=== PATIENT | male | born 2000 | race Caucasian/White ===

== ENCOUNTER 2024-09-22 14:31 | Emergency (ER) | payer SELFPAY ==
[~2024-09-22] VITALS: Ht 172.7 cm; Wt 88.0 kg
[2024-09-22] MEDS ORDERED: PENICILLIN VK500 MG PO (15:07)
[2024-09-22] MEDS ORDERED: PENICILLIN V POTASSIUM 500 MG TAB PO ONE (15:10)
== END 2024-09-22 15:21 | disposition home or self-care (01) ==
LOC: ED 14:31
DX: S02.5XXA Fracture of tooth (traumatic), initial encounter for closed fracture (principal); X58.XXXA Exposure to other specified factors, initial encounter; Y93.89 Activity, other specified; Y92.89 Other specified places as the place of occurrence of the external cause; Y99.8 Other external cause status